=== PATIENT | female | born 1980 | race Hispanic/Latino ===

== ENCOUNTER 2022-01-11 14:08 | Outpatient (CLI) | payer BC | END 2022-01-11 14:09 | disposition home or self-care (01) | LOC: CSHMAMMO 14:08 | PROVIDERS: ATTEND Student in an Organized Health Care Education/Training Program | DX: Z12.31 Encounter for screening mammogram for malignant neoplasm of breast (principal) | CPT/HCPCS: 77063; 77067 ==